=== PATIENT | male | born 1945 | race Two or more races ===

== ENCOUNTER 2021-03-09 01:07 | Emergency (ER) | payer OTHER ==
[~2021-03-09] VITALS: Ht 175.3 cm; Wt 80.7 kg
[2021-03-09] MEDS ORDERED: ELIQUIS5 MG PO (01:22)
[2021-03-09] MEDS ORDERED: ATORVASTATIN CA20 MG (01:22)
[2021-03-09] MEDS ORDERED: LOSARTAN-HCTZ1 EAC2 (01:24)
== END 2021-03-09 05:32 ==
LOC: ER 01:07
DX: T16.1XXA Foreign body in right ear, initial encounter (principal); X58.XXXA Exposure to other specified factors, initial encounter; Y93.89 Activity, other specified; Y92.89 Other specified places as the place of occurrence of the external cause; Y99.8 Other external cause status